=== PATIENT | male | born 1960 | race Caucasian/White ===

== ENCOUNTER 2023-05-11 16:52 | Emergency (ER) | payer OTHER ==
[~2023-05-11] VITALS: Ht 175.3 cm; Wt 98.0 kg
[~2023-05-11 16:52] MED LIST: ATEN50TA8 PO; LIB25 PO; LORA-476 PO; MELO-174 PO
[2023-05-11 17:10] VITALS: BP 167/83; PULSE 99; RESP 18; TEMP 97.8; O2SAT 95
[2023-05-11] MEDS ORDERED: IBUP-2213 PO (18:28)
[2023-05-11 19:15] VITALS: O2SAT 95
== END 2023-05-11 19:15 | disposition home or self-care (01) ==
LOC: MED 16:52
DX: R51.9 Headache, unspecified (principal); I10 Essential (primary) hypertension; Z79.899 Other long term (current) drug therapy
CPT/HCPCS: 70450; 99284

== ENCOUNTER 2023-07-22 17:53 | Emergency (ER) | payer OTHER ==
[~2023-07-22] VITALS: Ht 182.9 cm; Wt 99.8 kg
[~2023-07-22 17:53] MED LIST changes: +IBUP-2213 PO
[2023-07-22 18:01] VITALS: BP 174/87; PULSE 88; RESP 18; TEMP 98; O2SAT 98
[2023-07-22 18:20] LABS: BASOPHILS # (AUTO) 0.1 K/uL (0.00-0.22); BASOPHILS % (AUTO) 2.7 % (0.0-2.0); EOSINOPHILS # (AUTO) 0.1 K/uL (0-0.4); EOSINOPHILS % (AUTO) 3.6 % (0.0-4.0); HEMATOCRIT 37.9 % (36-52); HEMOGLOBIN 12.5 g/dL (12.0-18.0); LYMPHOCYTES # (AUTO) 1.3 K/uL (2.0-11.5); LYMPHOCYTES % (AUTO) 44.8 % (20.5-51.1); MEAN CORPUSCULAR HEMOGLOBIN 29 pg (27-31); MEAN CORPUSCULAR HGB CONC 33 g/dL (33-37); MONOCYTES # (AUTO) 0.4 K/uL (0.8-1.0); MONOCYTES % (AUTO) 12.9 % (1.7-9.3); PLATELET COUNT (AUTO) 68 K/uL (140-450); RED BLOOD CELL COUNT(AUTO) 4.31 MIL/uL (4.20-6.10); RED CELL DISTRIBUTION WIDTH 20.8 % (11.6-13.7); WHITE BLOOD COUNT (AUTO) 2.9 K/uL (4.8-10.8)
[2023-07-22 18:30] LABS: CALCIUM 8.9 mg/dL (8.5-10.1); CREATININE 0.9 mg/dL (0.6-1.3)
[2023-07-22 18:34] LABS: INR 0.96 (0.8-1.2); PARTIAL THROMBOPLASTIN TIME 21.8 secs (22-35.6); PROTHROMBIN TIME 10.1 secs (10.8-13.4)
[2023-07-22 21:00] VITALS: BP 138/72; PULSE 88; RESP 28; TEMP 98; O2SAT 96
== END 2023-07-22 21:00 | disposition home or self-care (01) ==
LOC: MED 17:53
DX: S09.90XA Unspecified injury of head, initial encounter (principal); F10.129 Alcohol abuse with intoxication, unspecified; I10 Essential (primary) hypertension; Z79.899 Other long term (current) drug therapy; Y90.9 Presence of alcohol in blood, level not specified; W18.30XA Fall on same level, unspecified, initial encounter; Y93.89 Activity, other specified; Y92.89 Other specified places as the place of occurrence of the external cause; Y99.8 Other external cause status
CPT/HCPCS: 36415; 70450; 72125; 80048; 85025; 85610; 85730; 99284; G0482

== ENCOUNTER 2023-08-26 12:37 | Emergency (ER) | payer OTHER ==
[~2023-08-26] VITALS: Ht 175.3 cm; Wt 99.8 kg
[~2023-08-26 12:37] MED LIST changes: +CHLO-1446 PO; -LIB25 PO
[2023-08-26 12:43] VITALS: BP 135/90; PULSE 85; RESP 15; TEMP 98.2; O2SAT 96
[2023-08-26 13:26] LABS: BASOPHILS # (AUTO) 0.1 K/uL (0.00-0.22); BASOPHILS % (AUTO) 4.1 % (0.0-2.0); EOSINOPHILS # (AUTO) 0.2 K/uL (0-0.4); EOSINOPHILS % (AUTO) 4.8 % (0.0-4.0); HEMATOCRIT 35.4 % (36-52); HEMOGLOBIN 11.7 g/dL (12.0-18.0); LYMPHOCYTES # (AUTO) 1.4 K/uL (2.0-11.5); LYMPHOCYTES % (AUTO) 41.7 % (20.5-51.1); MEAN CORPUSCULAR HEMOGLOBIN 29 pg (27-31); MEAN CORPUSCULAR HGB CONC 33 g/dL (33-37); MEAN CORPUSCULAR VOLUME 88.6 fL (80-94); MONOCYTES # (AUTO) 0.5 K/uL (0.8-1.0); MONOCYTES % (AUTO) 15.2 % (1.7-9.3); NEUTROPHILS # (AUTO) 1.1 K/uL (1.8-7.7); NEUTROPHILS % (AUTO) 34.2 % (42.2-75.2); PLATELET COUNT (AUTO) 194 K/uL (140-450); RED CELL DISTRIBUTION WIDTH 20.8 % (11.6-13.7); WHITE BLOOD COUNT (AUTO) 3.3 K/uL (4.8-10.8)
[2023-08-26 13:40] LABS: ANION GAP 11.9 (8-16); CREATININE 0.8 mg/dL (0.6-1.3); POTASSIUM 3.9 mmol/L (3.5-5.1)
[2023-08-26 13:46] LABS: INR 0.91 (0.8-1.2); PARTIAL THROMBOPLASTIN TIME 22.4 secs (22-35.6); PROTHROMBIN TIME 9.6 secs (10.8-13.4)
[2023-08-26 13:49] LABS: ALANINE AMINOTRANSFERASE 80 U/L (12-78); ALBUMIN 3.3 g/dL (3.4-5.0); ALKALINE PHOSPHATASE 54 U/L (50-136); ASPARTATE AMINOTRANSFERASE 79 U/L (15-37); BILIRUBIN,DIRECT 0.1 mg/dL (0.0-0.3); TOTAL BILIRUBIN 0.2 mg/dL (0.0-1.0); TOTAL PROTEIN, SERUM 8.1 g/dL (6.4-8.2)
[2023-08-26] MEDS ORDERED: diazePAM 5 MG TAB PO ONE (14:40)
[2023-08-26] MEDS ORDERED: CHLO-836 PO (14:52)
[2023-08-26 15:11] VITALS: BP 135/90; PULSE 79; RESP 15; TEMP 98.2; O2SAT 96
== END 2023-08-26 15:11 | disposition home or self-care (01) ==
LOC: MED 12:37
DX: F10.90 Alcohol use, unspecified, uncomplicated (principal); I11.9 Hypertensive heart disease without heart failure; J44.9 Chronic obstructive pulmonary disease, unspecified; K21.9 Gastro-esophageal reflux disease without esophagitis; Z79.899 Other long term (current) drug therapy; Y90.9 Presence of alcohol in blood, level not specified
CPT/HCPCS: 36415; 71045; 80048; 80076; 83880; 84484; 85025; 85610; 85730; 93005; 99285; Q0092

== ENCOUNTER 2023-08-31 13:12 | Emergency (ER) | payer OTHER ==
[~2023-08-31] VITALS: Ht 182.9 cm; Wt 117.9 kg
[~2023-08-31 13:12] MED LIST changes: +CHLO-836 PO
[2023-08-31 13:18] VITALS: BP 128/74; PULSE 86; RESP 16; TEMP 98.9; O2SAT 97
[2023-08-31 15:05] LABS: BASOPHILS # (AUTO) 0.1 K/uL (0.00-0.22); BASOPHILS % (AUTO) 3.1 % (0.0-2.0); EOSINOPHILS # (AUTO) 0.2 K/uL (0-0.4); EOSINOPHILS % (AUTO) 8.4 % (0.0-4.0); HEMATOCRIT 35.3 % (36-52); HEMOGLOBIN 11.6 g/dL (12.0-18.0); LYMPHOCYTES % (AUTO) 35.1 % (20.5-51.1); MEAN CORPUSCULAR HEMOGLOBIN 29 pg (27-31); MEAN CORPUSCULAR HGB CONC 33 g/dL (33-37); MEAN CORPUSCULAR VOLUME 87.8 fL (80-94); MONOCYTES # (AUTO) 0.4 K/uL (0.8-1.0); MONOCYTES % (AUTO) 13.1 % (1.7-9.3); NEUTROPHILS # (AUTO) 1.1 K/uL (1.8-7.7); NEUTROPHILS % (AUTO) 40.3 % (42.2-75.2); PLATELET COUNT (AUTO) 184 K/uL (140-450); RED BLOOD CELL COUNT(AUTO) 4.03 MIL/uL (4.20-6.10); RED CELL DISTRIBUTION WIDTH 20.3 % (11.6-13.7); WHITE BLOOD COUNT (AUTO) 2.8 K/uL (4.8-10.8)
[2023-08-31 15:13] LABS: ANION GAP 10.4 (8-16); CALCIUM 8.8 mg/dL (8.5-10.1); CARBON DIOXIDE 31.6 mmol/L (21-32); CREATININE 0.7 mg/dL (0.6-1.3)
[2023-08-31 15:21] LABS: ALANINE AMINOTRANSFERASE 27 U/L (12-78); ALBUMIN 3.2 g/dL (3.4-5.0); ALKALINE PHOSPHATASE 48 U/L (50-136); ASPARTATE AMINOTRANSFERASE 31 U/L (15-37); BILIRUBIN,DIRECT 0.1 mg/dL (0.0-0.3); TOTAL BILIRUBIN 0.2 mg/dL (0.0-1.0); TOTAL PROTEIN, SERUM 7.6 g/dL (6.4-8.2)
[2023-08-31 15:28] LABS: ANISOCYTOSIS 1+; HELMET CELLS 1+; OVALOCYTES 1+; POIKILOCYTOSIS 2+; STOMATOCYTES 2+
[2023-08-31 15:34] LABS: INR 0.94 (0.8-1.2); PARTIAL THROMBOPLASTIN TIME 23.3 secs (22-35.6); PROTHROMBIN TIME 9.9 secs (10.8-13.4)
[2023-08-31] MEDS ORDERED: THIAMINE 200 MG/2 ML VIAL IV ONE (15:45)
[2023-08-31] MEDS: FOLIC ACID 1 MG TAB PO ONE (16:02)
[2023-08-31] MEDS: THIAMINE 200 MG/2 ML VIAL IM ONE (16:03)
[2023-08-31 17:34] VITALS: BP 119/74; PULSE 81; RESP 18; TEMP 98.7; O2SAT 100
== END 2023-08-31 17:34 | disposition home or self-care (01) ==
LOC: MED 13:12
DX: F10.129 Alcohol abuse with intoxication, unspecified (principal); J44.9 Chronic obstructive pulmonary disease, unspecified; K21.9 Gastro-esophageal reflux disease without esophagitis; I10 Essential (primary) hypertension; Z79.899 Other long term (current) drug therapy; Y90.9 Presence of alcohol in blood, level not specified
CPT/HCPCS: 36415; 71045; 80048; 80076; 84484; 85025; 85610; 85730; 93005; 96372; 99285; J3411

== ENCOUNTER 2023-09-09 19:36 | Inpatient (IN) | payer OTHER ==
[~2023-09-09] VITALS: Ht 177.8 cm; Wt 112.5 kg
[2023-09-09 19:41] VITALS: BP 156/86; PULSE 130; RESP 20; TEMP 97.4; O2SAT 94
[2023-09-09] MEDS: MULTIVITAMIN-12 10 ML in NACL 0.9% 1,000 ML IV ONE (19:45)
[2023-09-09] MEDS: LORazepam 2 MG/ML VIAL IVP ONE ×2 (19:45→20:40)
[2023-09-09] MEDS: ONDANSETRON 4 MG/2 ML VIAL IVP ONE (19:45)
[2023-09-09 20:06] LABS: BASOPHILS % (AUTO) 0.7 % (0.0-2.0); HEMATOCRIT 34.9 % (36-52); HEMOGLOBIN 11.5 g/dL (12.0-18.0); LYMPHOCYTES # (AUTO) 0.2 K/uL (2.0-11.5); LYMPHOCYTES % (AUTO) 3.8 % (20.5-51.1); MEAN CORPUSCULAR HEMOGLOBIN 29 pg (27-31); MEAN CORPUSCULAR HGB CONC 33 g/dL (33-37); MEAN CORPUSCULAR VOLUME 87.4 fL (80-94); MONOCYTES # (AUTO) 0.6 K/uL (0.8-1.0); MONOCYTES % (AUTO) 12.2 % (1.7-9.3); NEUTROPHILS # (AUTO) 4.1 K/uL (1.8-7.7); NEUTROPHILS % (AUTO) 83.3 % (42.2-75.2); PLATELET COUNT (AUTO) 91 K/uL (140-450); RED CELL DISTRIBUTION WIDTH 21.1 % (11.6-13.7)
[2023-09-09] MEDS: ACETAMINOPHEN EXTRA STRENGTH 500 MG TAB PO ONE (20:15)
[2023-09-09 20:30] LABS: ALBUMIN 3.4 g/dL (3.4-5.0); ANION GAP 25.7 (8-16); CARBON DIOXIDE 19.9 mmol/L (21-32); CREATININE 1.3 mg/dL (0.6-1.3); MAGNESIUM 1.4 mg/dL (1.8-2.4); PHOSPHORUS 2.6 mg/dL (2.5-4.9); POTASSIUM 3.6 mmol/L (3.5-5.1); TOTAL BILIRUBIN 0.5 mg/dL (0.0-1.0); TOTAL PROTEIN, SERUM 8.5 g/dL (6.4-8.2)
[2023-09-09] MEDS: NACL 0.9% 1,000 ML IV ONE ×2 (20:36→21:18)
[2023-09-09] MEDS ORDERED: MULTIVITAMIN-12 10 ML VIAL IV ONE (20:50)
[2023-09-09 21:00] LABS: LACTIC ACID 9.9 mmol/L (0.4-2.0)
[2023-09-09] MEDS ORDERED: DEXMEDETOMIDINE HCL 400 MCG in NACL 0.9% 96 ML IV PRN (21:05)
[2023-09-09] MEDS ORDERED: cefTRIAXone 1,000 MG VIAL ONE (21:07)
[2023-09-09 21:11] LABS: CALCIUM 8.6 mg/dL (8.5-10.1)
[2023-09-09] MEDS: MAG SULF 2000 MG/WATER PREMIX 50 ML IV ONE (21:15)
[2023-09-09] MEDS ORDERED: THIAMINE 200 MG/2 ML VIAL ONE (21:21)
[2023-09-09] MEDS ORDERED: FOLIC ACID 5 MG/ML SYR ONE (21:22)
[2023-09-09] MEDS: THIAMINE 200 MG/2 ML VIAL IM ONE (21:23)
[2023-09-09] MEDS: FOLIC ACID 5 MG/ML SYR IM ONE (21:23)
[2023-09-09 21:32] LABS: INR 0.98 (0.8-1.2); PARTIAL THROMBOPLASTIN TIME 24.6 secs (22-35.6); PROTHROMBIN TIME 10.3 secs (10.8-13.4)
[2023-09-09 22:58] LABS: ANION GAP 15.5 (8-16); CARBON DIOXIDE 26.2 mmol/L (21-32); CREATININE 1.1 mg/dL (0.6-1.3); POTASSIUM 3.7 mmol/L (3.5-5.1)
[2023-09-10 01:10] LABS: APPEARANCE,URINE CLEAR (CLEAR); BILIRUBIN,URINE NEGATIVE (NEGATIVE); BLOOD, URINE 2+ (NEGATIVE); COLOR,URINE YELLOW (YELLOW); LEUKOCYTE ESTERASE ,URINE NEGATIVE (NEGATIVE); NITRITE, URINE NEGATIVE (NEGATIVE); PROTEIN,URINE 2+ (NEGATIVE); UGLUCOSE NEGATIVE (NEGATIVE); UROBILINOGEN,URINE 0.2 EU/dL (0.2 - 1)
[2023-09-10 01:23] LABS: BACTERIA,URINE OCCASSIONAL /HPF (None Seen); HYALINE CASTS, URINE 0-2 /LPF (None Seen); MUCUS,URINE 1+ /LPF (None Seen); RBC,URINE 0-5 /HPF (0-5); SQUAMOUS EPITHELIAL CELL,UR 0-3 (FEW) /LPF (0-3 (FEW)); WBC,URINE 0-5 /HPF (0-5)
[2023-09-10] MEDS: LORazepam 2 MG/ML VIAL IVP PRN ×2 (03:05→18:20)
[2023-09-10 03:59] LABS: FLU A ANTIGEN negative (NEGATIVE); FLU B ANTIGEN negative (NEGATIVE)
[2023-09-10] MEDS: chlordiazePOXIDE 25 MG CAP PO SCH ×2 (08:29→12:13)
[2023-09-10 08:52] VITALS: PULSE 94; RESP 20; O2SAT 95
[2023-09-10 09:39] LABS: BASOPHILS % (AUTO) 0.6 % (0.0-2.0); HEMATOCRIT 31.4 % (36-52); HEMOGLOBIN 10.4 g/dL (12.0-18.0); LYMPHOCYTES # (AUTO) 0.6 K/uL (2.0-11.5); LYMPHOCYTES % (AUTO) 12.8 % (20.5-51.1); MEAN CORPUSCULAR HEMOGLOBIN 29 pg (27-31); MEAN CORPUSCULAR HGB CONC 33 g/dL (33-37); MEAN CORPUSCULAR VOLUME 87.1 fL (80-94); MONOCYTES # (AUTO) 0.9 K/uL (0.8-1.0); MONOCYTES % (AUTO) 19.8 % (1.7-9.3); NEUTROPHILS # (AUTO) 3.1 K/uL (1.8-7.7); NEUTROPHILS % (AUTO) 66.8 % (42.2-75.2); PLATELET COUNT (AUTO) 79 K/uL (140-450); RED BLOOD CELL COUNT(AUTO) 3.61 MIL/uL (4.20-6.10); RED CELL DISTRIBUTION WIDTH 21.1 % (11.6-13.7); WHITE BLOOD COUNT (AUTO) 4.7 K/uL (4.8-10.8)
[2023-09-10 09:55] LABS: ANION GAP 11.8 (8-16); CALCIUM 7.5 mg/dL (8.5-10.1); CARBON DIOXIDE 30.1 mmol/L (21-32); CREATININE 0.7 mg/dL (0.6-1.3); POTASSIUM 3.9 mmol/L (3.5-5.1)
[2023-09-10 10:00] VITALS: BP 146/77; PULSE 94; RESP 17; TEMP 97.5; O2SAT 98
[2023-09-10] MEDS ORDERED: ONDANSETRON 4 MG/2 ML VIAL IVP PRN (11:55)
[2023-09-10 12:00] VITALS: BP 154/80; PULSE 92; RESP 17; TEMP 98; O2SAT 97
[2023-09-10] MEDS ORDERED: remdesivir COMMUNICATION ORDER 1 EA MISC MC PRN (14:45)
[2023-09-10] MEDS ORDERED: remdesivir CLINICAL MONITORING 1 EA MISC MC PRN (14:55)
[2023-09-10 15:01] LABS: ALBUMIN 2.7 g/dL (3.4-5.0); BILIRUBIN,DIRECT 0.1 mg/dL (0.0-0.3); TOTAL BILIRUBIN 0.3 mg/dL (0.0-1.0); TOTAL PROTEIN, SERUM 7.1 g/dL (6.4-8.2)
[2023-09-10] MEDS: THIAMINE 200 MG/2 ML VIAL IV SCH (15:07)
[2023-09-10 16:00] VITALS: BP 154/80; PULSE 97; RESP 24; TEMP 98.8; O2SAT 95
[2023-09-10] MEDS: REMDESIVIR. 200 MG in NACL 0.9% 100 ML IV SCH (16:00)
[2023-09-10 20:00] VITALS: BP 133/82; PULSE 84; PULSE 90; RESP 20; TEMP 98.3; TEMP 98.6; O2SAT 96; O2SAT 98
[2023-09-10] MEDS: FAMOTIDINE 20 MG TAB PO SCH (21:32)
[2023-09-10] MEDS: atenoloL 50 MG TAB PO SCH (21:33)
[2023-09-11 06:51] LABS: ALBUMIN 2.9 g/dL (3.4-5.0); BILIRUBIN,DIRECT 0.2 mg/dL (0.0-0.3); TOTAL BILIRUBIN 0.5 mg/dL (0.0-1.0); TOTAL PROTEIN, SERUM 7.4 g/dL (6.4-8.2)
[2023-09-11 08:00] VITALS: BP 158/83; PULSE 92; RESP 20; TEMP 98.5; O2SAT 100
[2023-09-11] MEDS ORDERED: ENOXAPARIN 40 MG/0.4 ML SYR SUBQ SCH (09:00)
[2023-09-11 09:35] LABS: BASOPHILS % (AUTO) 0.8 % (0.0-2.0); EOSINOPHILS % (AUTO) 0.8 % (0.0-4.0); HEMATOCRIT 32.5 % (36-52); HEMOGLOBIN 10.6 g/dL (12.0-18.0); LYMPHOCYTES # (AUTO) 0.6 K/uL (2.0-11.5); LYMPHOCYTES % (AUTO) 14.8 % (20.5-51.1); MEAN CORPUSCULAR HEMOGLOBIN 29 pg (27-31); MEAN CORPUSCULAR HGB CONC 33 g/dL (33-37); MEAN CORPUSCULAR VOLUME 87.9 fL (80-94); MONOCYTES # (AUTO) 0.5 K/uL (0.8-1.0); MONOCYTES % (AUTO) 13.8 % (1.7-9.3); NEUTROPHILS # (AUTO) 2.7 K/uL (1.8-7.7); NEUTROPHILS % (AUTO) 69.8 % (42.2-75.2); PLATELET COUNT (AUTO) 86 K/uL (140-450); WHITE BLOOD COUNT (AUTO) 3.8 K/uL (4.8-10.8)
[2023-09-11 09:38] LABS: ANION GAP 9.2 (8-16); CALCIUM 7.7 mg/dL (8.5-10.1); CARBON DIOXIDE 32.5 mmol/L (21-32); CREATININE 0.7 mg/dL (0.6-1.3); POTASSIUM 3.7 mmol/L (3.5-5.1)
[2023-09-11] MEDS: MEDS-TO-BEDS MC SCH (09:57)
[2023-09-11] MEDS: REMDESIVIR. 100 MG in NACL 0.9% 100 ML IV SCH (11:15)
[2023-09-11 12:00] VITALS: BP 148/87; PULSE 97; RESP 20; TEMP 98.9; O2SAT 98
[2023-09-11 16:00] VITALS: BP 143/82; PULSE 95; RESP 20; TEMP 98.6; O2SAT 97
[2023-09-11] MEDS ORDERED: REMDESIVIR. 100 MG in NACL 0.9% 100 ML IV SCH (16:00)
[2023-09-11 20:00] VITALS: BP 133/85; PULSE 103; RESP 20; TEMP 100.1; O2SAT 95; O2SAT 96
[2023-09-11] MEDS ORDERED: ACETAMINOPHEN 325 MG TAB PO PRN (21:45)
[2023-09-11] MEDS: ACETAMINOPHEN 325 MG TAB ONE ×2 (21:52→21:55)
[2023-09-12] VITALS: BP 122/62; PULSE 101; RESP 20; TEMP 98.8; O2SAT 97
[2023-09-12 04:00] VITALS: BP 135/90; PULSE 100; RESP 20; TEMP 98.7; O2SAT 96
[2023-09-12 06:01] VITALS: O2SAT 97
[2023-09-12 08:00] VITALS: BP 123/66; PULSE 106; RESP 20; RESP 26; TEMP 98.5; TEMP 98.8; O2SAT 96
[2023-09-12 08:11] LABS: ALBUMIN 2.9 g/dL (3.4-5.0); BILIRUBIN,DIRECT 0.3 mg/dL (0.0-0.3); TOTAL BILIRUBIN 0.5 mg/dL (0.0-1.0); TOTAL PROTEIN, SERUM 6.9 g/dL (6.4-8.2)
[2023-09-12 08:51] VITALS: O2SAT 95
[2023-09-12] MEDS: chlordiazePOXIDE 25 MG CAP PO SCH (12:32)
[2023-09-12] MEDS: LORazepam 2 MG/ML VIAL IVP PRN (16:18)
[2023-09-12 20:00] VITALS: BP 129/72; PULSE 98; RESP 18; RESP 20; TEMP 97.9; O2SAT 97
[2023-09-13] VITALS (8 sets, daily range): BP systolic 123–134; BP diastolic 68–77; PULSE 84–90; RESP 18–20; TEMP 97–209.1; O2SAT 96–97
[2023-09-13 07:26] LABS: ALBUMIN 2.7 g/dL (3.4-5.0); BILIRUBIN,DIRECT 0.2 mg/dL (0.0-0.3); TOTAL BILIRUBIN 0.4 mg/dL (0.0-1.0); TOTAL PROTEIN, SERUM 7.4 g/dL (6.4-8.2)
[2023-09-13 07:39] LABS: ANION GAP 12.2 (8-16); CALCIUM 8.1 mg/dL (8.5-10.1); CARBON DIOXIDE 30.4 mmol/L (21-32); CREATININE 0.7 mg/dL (0.6-1.3); POTASSIUM 3.6 mmol/L (3.5-5.1)
[2023-09-13] MEDS: DEXAMETHASONE 4 MG TAB PO SCH (13:02)
[2023-09-13] MEDS: chlordiazePOXIDE 25 MG CAP PO SCH (13:10)
[2023-09-14] VITALS (7 sets, daily range): BP systolic 120–138; BP diastolic 56–71; PULSE 76–98; RESP 20–22; TEMP 97.4–98.8; O2SAT 85–98
[2023-09-14 07:29] LABS: ALBUMIN 2.7 g/dL (3.4-5.0); BILIRUBIN,DIRECT 0.3 mg/dL (0.0-0.3); TOTAL BILIRUBIN 0.5 mg/dL (0.0-1.0); TOTAL PROTEIN, SERUM 7.6 g/dL (6.4-8.2)
[2023-09-14] MEDS: LORazepam 1 MG TAB PO PRN (22:25)
[2023-09-15] VITALS (8 sets, daily range): BP systolic 156–163; BP diastolic 78–83; PULSE 71–83; RESP 19–20; TEMP 97.6–98.8; O2SAT 90–98
[2023-09-15 08:03] LABS: ANION GAP 6.7 (8-16); CALCIUM 8.2 mg/dL (8.5-10.1); CARBON DIOXIDE 34.9 mmol/L (21-32); CREATININE 0.7 mg/dL (0.6-1.3); POTASSIUM 3.6 mmol/L (3.5-5.1)
[2023-09-15 08:18] LABS: ALBUMIN 2.6 g/dL (3.4-5.0); BILIRUBIN,DIRECT 0.3 mg/dL (0.0-0.3); TOTAL BILIRUBIN 0.4 mg/dL (0.0-1.0); TOTAL PROTEIN, SERUM 7.1 g/dL (6.4-8.2)
[2023-09-15] MEDS ORDERED: CHLO-836 PO (15:10)
[2023-09-15] MEDS: chlordiazePOXIDE 25 MG CAP PO SCH (22:07)
[2023-09-16 08:00] VITALS: BP 152/64; PULSE 72; RESP 18; TEMP 98; O2SAT 97
[2023-09-16 09:10] VITALS: O2SAT 94
== END 2023-09-16 14:40 | DRG 720 ==
LOC: MED 19:36 → MTU 21:02 → MIC 09-10 05:24 → MTU 09-10 16:00
PROVIDERS: ADMIT Hospitalist; ATTEND Hospitalist
PROC: XW033E5 Introduction of Remdesivir Anti-infective into Peripheral Vein, Percutaneous Approach, New Technology Group 5 (ICD-10-PCS; principal; 2023-09-09)
DX: A41.9 Sepsis, unspecified organism (principal); J12.82 Pneumonia due to coronavirus disease 2019; F10.231 Alcohol dependence with withdrawal delirium; U07.1 COVID-19; D69.6 Thrombocytopenia, unspecified; E87.21 Acute metabolic acidosis; I11.0 Hypertensive heart disease with heart failure; I50.9 Heart failure, unspecified; G40.909 Epilepsy, unspecified, not intractable, without status epilepticus; K21.9 Gastro-esophageal reflux disease without esophagitis; K74.60 Unspecified cirrhosis of liver; J44.9 Chronic obstructive pulmonary disease, unspecified; E66.9 Obesity, unspecified; Z68.35 Body mass index [BMI] 35.0-35.9, adult; Z91.148 Patient's other noncompliance with medication regimen for other reason; Z79.899 Other long term (current) drug therapy
CPT/HCPCS: 36415; 71045; 80048; 80053; 80076; 81001; 82140; 82948; 83605; 83690; 83735; 84100; 85025; 85610; 85730; 87040; 87081; 96365; 96368; 96372; 96375; 97110; 97112; 97163-GP; 97530; 99291; A9153; G0482; J0696; J2060; J3411; J3475; J3490; Q0092

== ENCOUNTER 2023-11-19 16:14 | Emergency (ER) | payer OTHER ==
[~2023-11-19] VITALS: Ht 180.3 cm; Wt 122.5 kg
[~2023-11-19 16:14] MED LIST changes: -CHLO-1446 PO; -IBUP-2213 PO; -LORA-476 PO
[2023-11-19 16:24] VITALS: BP 122/68; PULSE 91; RESP 18; TEMP 98.6; O2SAT 94
[2023-11-19 17:00] VITALS: BP 122/68; PULSE 91; RESP 18; TEMP 98.6; O2SAT 94
== END 2023-11-19 17:00 | disposition home or self-care (01) ==
LOC: MED 16:14
DX: F10.129 Alcohol abuse with intoxication, unspecified (principal); J45.909 Unspecified asthma, uncomplicated; I10 Essential (primary) hypertension; Z79.899 Other long term (current) drug therapy; Y90.9 Presence of alcohol in blood, level not specified
CPT/HCPCS: 99283

== ENCOUNTER 2023-12-02 11:42 | Inpatient (IN) | payer OTHER ==
[~2023-12-02] VITALS: Ht 180.3 cm; Wt 99.8 kg
[~2023-12-02 11:42] MED LIST changes: +CHLO-757 PO; -CHLO-836 PO
[2023-12-02 11:47] VITALS: BP 134/68; PULSE 78; RESP 20; TEMP 98.3; O2SAT 95
[2023-12-02 12:13] LABS: EOSINOPHILS % (AUTO) 0.3 % (0.0-4.0); HEMATOCRIT 33.5 % (36-52); HEMOGLOBIN 10.9 g/dL (12.0-18.0); LYMPHOCYTES # (AUTO) 0.5 K/uL (2.0-11.5); LYMPHOCYTES % (AUTO) 13.9 % (20.5-51.1); MEAN CORPUSCULAR HEMOGLOBIN 26 pg (27-31); MEAN CORPUSCULAR HGB CONC 33 g/dL (33-37); MEAN CORPUSCULAR VOLUME 80.6 fL (80-94); MONOCYTES # (AUTO) 0.5 K/uL (0.8-1.0); MONOCYTES % (AUTO) 13.9 % (1.7-9.3); NEUTROPHILS # (AUTO) 2.8 K/uL (1.8-7.7); NEUTROPHILS % (AUTO) 70.9 % (42.2-75.2); PLATELET COUNT (AUTO) 53 K/uL (140-450); RED BLOOD CELL COUNT(AUTO) 4.16 MIL/uL (4.20-6.10)
[2023-12-02] MEDS: NACL 0.9% 1,000 ML IV ONE (12:25)
[2023-12-02] MEDS: LORazepam 2 MG/ML VIAL IVP ONE (12:27)
[2023-12-02 12:33] LABS: ALANINE AMINOTRANSFERASE 16 U/L (12-78); ALBUMIN 3.7 g/dL (3.4-5.0); ALKALINE PHOSPHATASE 53 U/L (50-136); ANION GAP 16.9 (8-16); ASPARTATE AMINOTRANSFERASE 29 U/L (15-37); CALCIUM 8.6 mg/dL (8.5-10.1); CARBON DIOXIDE 25.9 mmol/L (21-32); CHLORIDE 96 mmol/L (98-107); CREATININE 0.8 mg/dL (0.6-1.3); GFR ARICAN-AMERICAN 125 mL/min (>90); GFR NON ARICAN-AMERICAN 103 mL/min (>90); GLUCOSE 93 mg/dL (74-106); POTASSIUM 3.8 mmol/L (3.5-5.1); SODIUM SERUM 135 mmol/L (136-145); TOTAL BILIRUBIN 1.5 mg/dL (0.0-1.0); TOTAL PROTEIN, SERUM 7.2 g/dL (6.4-8.2); UREA NITROGEN, BLOOD 17 mg/dL (7-18)
[2023-12-02 12:34] LABS: ACETAMINOPHEN < 0.5 ug/ml (10-30); ALCOHOL, BLOOD < 3 mg/dL (<10); SALICYLATE < 2.8 mg/dL (2.8-20.0)
[2023-12-02] MEDS ORDERED: MAG SULF 2000 MG/WATER PREMIX 50 ML IV PRN (14:30)
[2023-12-02] MEDS ORDERED: MORPHINE SULFATE 4 MG/ML SYR IVP PRN (14:30)
[2023-12-02] MEDS ORDERED: MAGNESIUM OXIDE 400 MG TAB PO PRN (14:30)
[2023-12-02] MEDS ORDERED: HYDROcodone/APAP 5/325 MG 1 TAB TAB PO PRN (14:30)
[2023-12-02] MEDS ORDERED: KCL 20 MEQ IN 100 mL PREMIX 200 ML IV PRN (14:30)
[2023-12-02] MEDS ORDERED: ACETAMINOPHEN 325 MG TAB PO PRN (14:30)
[2023-12-02] MEDS ORDERED: ONDANSETRON 4 MG/2 ML VIAL IVP PRN (14:30)
[2023-12-02] MEDS ORDERED: CELE100C PO (14:46)
[2023-12-02] MEDS ORDERED: ALPR0.5T2 PO (14:46)
[2023-12-02] MEDS: chlordiazePOXIDE 25 MG CAP PO SCH (14:49)
[2023-12-02] MEDS: NACL 0.9% 1,000 ML IV SCH (14:50)
[2023-12-02 16:00] VITALS: BP 138/77; PULSE 80; RESP 15; TEMP 98.1; O2SAT 99
[2023-12-02 16:43] VITALS: RESP 15; O2SAT 99
[2023-12-02] MEDS: GABAPENTIN 300 MG CAP PO SCH (18:43)
[2023-12-02 20:00] VITALS: BP 144/72; PULSE 86; PULSE 93; RESP 20; TEMP 97.9; O2SAT 98
[2023-12-03] VITALS: BP 107/65; PULSE 85; PULSE 89; RESP 17; TEMP 97.6; O2SAT 95
[2023-12-03] MEDS: CLONIDINE HYDROCHLORIDE 0.1 MG TAB PO SCH (02:24)
[2023-12-03 04:00] VITALS: BP_SYST 102; BP_SYST 107; BP_DIAS 53; BP_DIAS 65; PULSE 68; PULSE 79; PULSE 85; RESP 17; RESP 19; TEMP 97.6; TEMP 98.1; O2SAT 100; O2SAT 95
[2023-12-03 05:15] LABS: BASOPHILS % (AUTO) 0.8 % (0.0-2.0); EOSINOPHILS # (AUTO) 0.1 K/uL (0-0.4); EOSINOPHILS % (AUTO) 2.6 % (0.0-4.0); HEMATOCRIT 32.1 % (36-52); HEMOGLOBIN 10.1 g/dL (12.0-18.0); LYMPHOCYTES # (AUTO) 0.9 K/uL (2.0-11.5); LYMPHOCYTES % (AUTO) 25.6 % (20.5-51.1); MEAN CORPUSCULAR HEMOGLOBIN 26 pg (27-31); MEAN CORPUSCULAR HGB CONC 32 g/dL (33-37); MEAN CORPUSCULAR VOLUME 82.6 fL (80-94); MONOCYTES # (AUTO) 0.5 K/uL (0.8-1.0); MONOCYTES % (AUTO) 13.9 % (1.7-9.3); NEUTROPHILS % (AUTO) 57.1 % (42.2-75.2); PLATELET COUNT (AUTO) 53 K/uL (140-450); RED BLOOD CELL COUNT(AUTO) 3.88 MIL/uL (4.20-6.10); RED CELL DISTRIBUTION WIDTH 19.6 % (11.6-13.7); WHITE BLOOD COUNT (AUTO) 3.5 K/uL (4.8-10.8)
[2023-12-03 06:11] LABS: ANION GAP 16.9 (8-16); CALCIUM 8.3 mg/dL (8.5-10.1); CARBON DIOXIDE 23.6 mmol/L (21-32); CREATININE 0.8 mg/dL (0.6-1.3); POTASSIUM 3.5 mmol/L (3.5-5.1)
[2023-12-03 08:00] VITALS: BP 155/80; PULSE 105; PULSE 80; RESP 18; RESP 20; O2SAT 95
[2023-12-03] MEDS: THIAMINE 100 MG TAB PO SCH (08:59)
[2023-12-03] MEDS: ENOXAPARIN 40 MG/0.4 ML SYR SUBQ SCH (09:00)
[2023-12-03] MEDS: MULTIVITAMIN 1 TAB PO SCH (09:00)
[2023-12-03 12:00] VITALS: BP 162/81; PULSE 88; PULSE 97; RESP 20; TEMP 97.8; O2SAT 95
[2023-12-03] MEDS: LORazepam 2 MG/ML VIAL IVP PRN ×2 (15:16→20:28)
[2023-12-03 16:00] VITALS: BP 159/84; PULSE 94; PULSE 98; RESP 20; TEMP 97.9; O2SAT 95
[2023-12-03] MEDS: LORazepam 1 MG TAB PO PRN (16:13)
[2023-12-03] MEDS: CLONIDINE HYDROCHLORIDE 0.1 MG TAB PO ONE (18:29)
[2023-12-03 20:00] VITALS: BP 143/90; PULSE 98; RESP 18; TEMP 98.2; O2SAT 96
[2023-12-03] MEDS: MEDS-TO-BEDS MC SCH (21:00)
[2023-12-03] MEDS: ZOLPIDEM 5 MG TAB PO PRN (22:58)
[2023-12-04] VITALS (9 sets, daily range): BP systolic 144–163; BP diastolic 69–94; PULSE 85–102; RESP 18–20; TEMP 97–98.6; O2SAT 95–97
[2023-12-04 06:59] LABS: BASOPHILS % (AUTO) 0.8 % (0.0-2.0); EOSINOPHILS # (AUTO) 0.2 K/uL (0-0.4); EOSINOPHILS % (AUTO) 4.2 % (0.0-4.0); HEMATOCRIT 33.9 % (36-52); HEMOGLOBIN 10.7 g/dL (12.0-18.0); LYMPHOCYTES # (AUTO) 0.9 K/uL (2.0-11.5); LYMPHOCYTES % (AUTO) 23.9 % (20.5-51.1); MEAN CORPUSCULAR HEMOGLOBIN 26 pg (27-31); MEAN CORPUSCULAR HGB CONC 32 g/dL (33-37); MEAN CORPUSCULAR VOLUME 82.3 fL (80-94); MONOCYTES # (AUTO) 0.5 K/uL (0.8-1.0); MONOCYTES % (AUTO) 12.8 % (1.7-9.3); NEUTROPHILS # (AUTO) 2.3 K/uL (1.8-7.7); NEUTROPHILS % (AUTO) 58.3 % (42.2-75.2); PLATELET COUNT (AUTO) 69 K/uL (140-450); RED BLOOD CELL COUNT(AUTO) 4.12 MIL/uL (4.20-6.10); RED CELL DISTRIBUTION WIDTH 19.9 % (11.6-13.7); WHITE BLOOD COUNT (AUTO) 3.9 K/uL (4.8-10.8)
[2023-12-04 07:22] LABS: ANION GAP 21.1 (8-16); CALCIUM 8.5 mg/dL (8.5-10.1); CARBON DIOXIDE 19.3 mmol/L (21-32); CREATININE 0.8 mg/dL (0.6-1.3); POTASSIUM 3.4 mmol/L (3.5-5.1)
[2023-12-04] MEDS: POTASSIUM CHLORIDE 10 MEQ TABER PO PRN (10:28)
[2023-12-05] VITALS: BP 138/90; PULSE 94; PULSE 95; RESP 18; TEMP 98.6; O2SAT 97
[2023-12-05 04:00] VITALS: BP 118/70; PULSE 91; RESP 18; TEMP 98.4; O2SAT 96
[2023-12-05 06:57] LABS: HEMATOCRIT 32.2 % (36-52); HEMOGLOBIN 10.4 g/dL (12.0-18.0); MEAN CORPUSCULAR HEMOGLOBIN 27 pg (27-31); MEAN CORPUSCULAR HGB CONC 32 g/dL (33-37); MEAN CORPUSCULAR VOLUME 82.1 fL (80-94); PLATELET COUNT (AUTO) 84 K/uL (140-450); RED BLOOD CELL COUNT(AUTO) 3.92 MIL/uL (4.20-6.10); RED CELL DISTRIBUTION WIDTH 20.1 % (11.6-13.7); WHITE BLOOD COUNT (AUTO) 3.3 K/uL (4.8-10.8)
[2023-12-05 07:32] LABS: ANION GAP 16.3 (8-16); CALCIUM 8.3 mg/dL (8.5-10.1); CARBON DIOXIDE 22.4 mmol/L (21-32); POTASSIUM 3.7 mmol/L (3.5-5.1)
[2023-12-05 08:00] VITALS: BP 151/93; PULSE 72; PULSE 86; PULSE 96; RESP 17; RESP 18; TEMP 97.7; O2SAT 96; O2SAT 99
[2023-12-05 08:26] LABS: CREATININE 0.8 mg/dL (0.6-1.3)
[2023-12-05] MEDS ORDERED: [UNRECOGNIZED DRUG - CODE] PO (08:29)
[2023-12-05] MEDS ORDERED: CHLO5CAP29 PO (08:29)
[2023-12-05] MEDS ORDERED: THIA-10 PO (08:29)
[2023-12-05] MEDS ORDERED: ENOXAPARIN 40 MG/0.4 ML SYR SUBQ SCH (09:00)
[2023-12-05 09:51] LABS: EOSINOPHILS % (MANUAL) 6 % (0-4); MONOCYTES % (MANUAL) 14 % (5-12)
[2023-12-05 09:52] LABS: LYMPHOCYTES % (MANUAL) 25 % (20-46)
[2023-12-05 12:00] VITALS: BP 177/92; PULSE 100; PULSE 103; RESP 20; TEMP 97.5; O2SAT 95
[2023-12-05 13:40] VITALS: BP 153/91; PULSE 102; RESP 18; TEMP 97.8; O2SAT 95
== END 2023-12-05 14:30 | disposition home or self-care (01) | DRG 422 ==
LOC: MED 11:42 → MMU 14:27 → MTU 15:29
PROVIDERS: ADMIT Internal Medicine; ATTEND Internal Medicine
DX: E86.0 Dehydration (principal); D69.6 Thrombocytopenia, unspecified; R65.10 Systemic inflammatory response syndrome (SIRS) of non-infectious origin without acute organ dysfunction; D50.0 Iron deficiency anemia secondary to blood loss (chronic); F10.939 Alcohol use, unspecified with withdrawal, unspecified; Z79.899 Other long term (current) drug therapy
CPT/HCPCS: 36415; 80048; 80053; 83735; 85025; 87081; 93005; 96361; 96374; 99285; G0480; G0482; J2060

== ENCOUNTER 2024-02-17 21:39 | Inpatient (IN) | payer MEDICARE, OTHER ==
[~2024-02-17] VITALS: Ht 180.3 cm; Wt 108.9 kg
[~2024-02-17 21:39] MED LIST changes: +ALPR0.5T2 PO; +CELE100C PO; -CHLO-757 PO; +CHLO5CAP29 PO; +THIA-10 PO; +[UNRECOGNIZED DRUG - CODE] PO
[2024-02-17 21:41] VITALS: BP 164/87; PULSE 74; RESP 16; TEMP 99; O2SAT 98
[2024-02-18] VITALS (8 sets, daily range): BP systolic 113–155; BP diastolic 57–86; PULSE 80–90; RESP 18–20; TEMP 97.3–98.7; O2SAT 94–96
[2024-02-18 00:02] LABS: BASOPHILS % (AUTO) 0.7 % (0.0-2.0); HEMOGLOBIN 11.6 g/dL (12.0-18.0); LYMPHOCYTES # (AUTO) 0.4 K/uL (2.0-11.5); LYMPHOCYTES % (AUTO) 8.9 % (20.5-51.1); MEAN CORPUSCULAR HEMOGLOBIN 26 pg (27-31); MEAN CORPUSCULAR HGB CONC 32 g/dL (33-37); MEAN CORPUSCULAR VOLUME 81.5 fL (80-94); MONOCYTES # (AUTO) 0.6 K/uL (0.8-1.0); MONOCYTES % (AUTO) 12.7 % (1.7-9.3); NEUTROPHILS # (AUTO) 3.6 K/uL (1.8-7.7); NEUTROPHILS % (AUTO) 77.7 % (42.2-75.2); PLATELET COUNT (AUTO) 57 K/uL (140-450); RED BLOOD CELL COUNT(AUTO) 4.42 MIL/uL (4.20-6.10); RED CELL DISTRIBUTION WIDTH 24.1 % (11.6-13.7); WHITE BLOOD COUNT (AUTO) 4.6 K/uL (4.8-10.8)
[2024-02-18 00:16] LABS: ANION GAP 14.5 (8-16); CALCIUM 8.5 mg/dL (8.5-10.1); CARBON DIOXIDE 29.2 mmol/L (21-32); CREATININE 0.9 mg/dL (0.6-1.3); POTASSIUM 3.7 mmol/L (3.5-5.1)
[2024-02-18] MEDS: NACL 0.9% 1,000 ML IV ONE (00:18)
[2024-02-18] MEDS: LORazepam 2 MG/ML VIAL IVP ONE (00:18)
[2024-02-18 00:21] LABS: ALBUMIN 3.6 g/dL (3.4-5.0); TOTAL BILIRUBIN 1.9 mg/dL (0.0-1.0); TOTAL PROTEIN, SERUM 7.5 g/dL (6.4-8.2)
[2024-02-18] MEDS ORDERED: KCL 20 MEQ IN 100 mL PREMIX 200 ML IV PRN (00:30)
[2024-02-18] MEDS ORDERED: MAGNESIUM OXIDE 400 MG TAB PO PRN (00:30)
[2024-02-18] MEDS ORDERED: HYDROcodone/APAP 5/325 MG 1 TAB TAB PO PRN (00:30)
[2024-02-18] MEDS ORDERED: ONDANSETRON 4 MG/2 ML VIAL IVP PRN (00:30)
[2024-02-18] MEDS ORDERED: ACETAMINOPHEN 325 MG TAB PO PRN (00:30)
[2024-02-18] MEDS: NACL 0.9% 1,000 ML IV SCH (01:25)
[2024-02-18] MEDS: FOLIC ACID 1 MG TAB PO ONE (01:26)
[2024-02-18] MEDS: LORazepam 1 MG TAB PO PRN (08:32)
[2024-02-18] MEDS: MULTIVITAMIN 1 TAB PO SCH (08:32)
[2024-02-18] MEDS: THIAMINE 100 MG TAB PO SCH (08:32)
[2024-02-19] VITALS (9 sets, daily range): BP systolic 121–163; BP diastolic 75–96; PULSE 75–101; RESP 18–20; TEMP 97.9–98.5; O2SAT 94–98
[2024-02-19 06:53] LABS: BASOPHILS % (AUTO) 0.5 % (0.0-2.0); EOSINOPHILS # (AUTO) 0.1 K/uL (0-0.4); EOSINOPHILS % (AUTO) 2.1 % (0.0-4.0); HEMATOCRIT 34.5 % (36-52); HEMOGLOBIN 10.9 g/dL (12.0-18.0); LYMPHOCYTES # (AUTO) 0.7 K/uL (2.0-11.5); LYMPHOCYTES % (AUTO) 23.1 % (20.5-51.1); MEAN CORPUSCULAR HEMOGLOBIN 26 pg (27-31); MEAN CORPUSCULAR HGB CONC 32 g/dL (33-37); MEAN CORPUSCULAR VOLUME 82.9 fL (80-94); MONOCYTES # (AUTO) 0.5 K/uL (0.8-1.0); NEUTROPHILS # (AUTO) 1.9 K/uL (1.8-7.7); NEUTROPHILS % (AUTO) 60.3 % (42.2-75.2); PLATELET COUNT (AUTO) 57 K/uL (140-450); RED BLOOD CELL COUNT(AUTO) 4.16 MIL/uL (4.20-6.10); RED CELL DISTRIBUTION WIDTH 24.2 % (11.6-13.7); WHITE BLOOD COUNT (AUTO) 3.2 K/uL (4.8-10.8)
[2024-02-19 07:18] LABS: ALBUMIN 3.1 g/dL (3.4-5.0); ANION GAP 15.1 (8-16); CALCIUM 8.1 mg/dL (8.5-10.1); CARBON DIOXIDE 26.3 mmol/L (21-32); CREATININE 0.8 mg/dL (0.6-1.3); MAGNESIUM 1.1 mg/dL (1.8-2.4); PHOSPHORUS 1.9 mg/dL (2.5-4.9); POTASSIUM 3.4 mmol/L (3.5-5.1); TOTAL BILIRUBIN 1.1 mg/dL (0.0-1.0); TOTAL PROTEIN, SERUM 6.4 g/dL (6.4-8.2)
[2024-02-19] MEDS: MEDS-TO-BEDS MC SCH (08:48)
[2024-02-19] MEDS: MAG SULF 2000 MG/WATER PREMIX 50 ML IV PRN (08:55)
[2024-02-19] MEDS ORDERED: NYSTATIN POW 100 MU/GM 15 GM BTL TP PRN (10:05)
[2024-02-19] MEDS: NYSTATIN POW 100 MU/GM 15 GM BTL TP SCH (11:31)
[2024-02-19] MEDS: POTASSIUM CHLORIDE 10 MEQ TABER PO PRN (12:02)
[2024-02-19] MEDS: GABAPENTIN 300 MG CAP PO SCH (12:37)
[2024-02-19] MEDS: CLONIDINE HYDROCHLORIDE 0.1 MG TAB PO SCH (12:38)
[2024-02-20] VITALS: BP 120/80; PULSE 77; PULSE 81; RESP 20; TEMP 98.5; O2SAT 95
[2024-02-20 04:00] VITALS: BP 120/80; PULSE 111; PULSE 77; RESP 20; TEMP 98.5; O2SAT 95
[2024-02-20 06:41] LABS: BASOPHILS % (AUTO) 0.8 % (0.0-2.0); EOSINOPHILS # (AUTO) 0.1 K/uL (0-0.4); EOSINOPHILS % (AUTO) 3.9 % (0.0-4.0); HEMATOCRIT 36.5 % (36-52); HEMOGLOBIN 11.7 g/dL (12.0-18.0); LYMPHOCYTES # (AUTO) 0.7 K/uL (2.0-11.5); LYMPHOCYTES % (AUTO) 20.2 % (20.5-51.1); MEAN CORPUSCULAR HEMOGLOBIN 26 pg (27-31); MEAN CORPUSCULAR HGB CONC 32 g/dL (33-37); MEAN CORPUSCULAR VOLUME 82.6 fL (80-94); MONOCYTES # (AUTO) 0.5 K/uL (0.8-1.0); MONOCYTES % (AUTO) 12.7 % (1.7-9.3); NEUTROPHILS # (AUTO) 2.3 K/uL (1.8-7.7); NEUTROPHILS % (AUTO) 62.4 % (42.2-75.2); PLATELET COUNT (AUTO) 80 K/uL (140-450); RED BLOOD CELL COUNT(AUTO) 4.42 MIL/uL (4.20-6.10); WHITE BLOOD COUNT (AUTO) 3.7 K/uL (4.8-10.8)
[2024-02-20 07:15] LABS: ALBUMIN 3.3 g/dL (3.4-5.0); ANION GAP 18.6 (8-16); CALCIUM 8.7 mg/dL (8.5-10.1); CARBON DIOXIDE 23.8 mmol/L (21-32); CREATININE 0.7 mg/dL (0.6-1.3); MAGNESIUM 1.7 mg/dL (1.8-2.4); PHOSPHORUS 2.3 mg/dL (2.5-4.9); POTASSIUM 3.4 mmol/L (3.5-5.1); TOTAL BILIRUBIN 1.1 mg/dL (0.0-1.0); TOTAL PROTEIN, SERUM 6.9 g/dL (6.4-8.2)
[2024-02-20 08:00] VITALS: BP 161/86; PULSE 102; PULSE 87; RESP 18; TEMP 97.6; O2SAT 96
[2024-02-20] MEDS: hydrALAZINE 25 MG TAB PO PRN (12:14)
[2024-02-20 12:42] VITALS: BP 161/88; PULSE 110; PULSE 115; RESP 18; TEMP 97.7; O2SAT 94
[2024-02-20 16:00] VITALS: BP 152/98; PULSE 91; PULSE 94; RESP 18; TEMP 98.6; O2SAT 95
[2024-02-20 20:00] VITALS: BP 161/88; PULSE 102; PULSE 111; RESP 19; TEMP 98.2; O2SAT 93
[2024-02-20] MEDS ORDERED: CLON0.1T16 PO (21:30)
[2024-02-20] MEDS ORDERED: LORA-476 PO (21:30)
[2024-02-21] VITALS: BP 125/54; PULSE 78; PULSE 83; RESP 18; TEMP 97.8; O2SAT 94
[2024-02-21 04:00] VITALS: BP 169/88; PULSE 79; PULSE 81; RESP 19; TEMP 97.6; O2SAT 98
[2024-02-21 07:03] LABS: BASOPHILS % (AUTO) 0.8 % (0.0-2.0); EOSINOPHILS # (AUTO) 0.2 K/uL (0-0.4); EOSINOPHILS % (AUTO) 5.9 % (0.0-4.0); HEMATOCRIT 35.3 % (36-52); HEMOGLOBIN 11.3 g/dL (12.0-18.0); LYMPHOCYTES # (AUTO) 0.9 K/uL (2.0-11.5); LYMPHOCYTES % (AUTO) 23.3 % (20.5-51.1); MEAN CORPUSCULAR HEMOGLOBIN 27 pg (27-31); MEAN CORPUSCULAR HGB CONC 32 g/dL (33-37); MEAN CORPUSCULAR VOLUME 82.8 fL (80-94); MONOCYTES # (AUTO) 0.6 K/uL (0.8-1.0); MONOCYTES % (AUTO) 15.7 % (1.7-9.3); NEUTROPHILS % (AUTO) 54.3 % (42.2-75.2); PLATELET COUNT (AUTO) 99 K/uL (140-450); RED BLOOD CELL COUNT(AUTO) 4.26 MIL/uL (4.20-6.10); WHITE BLOOD COUNT (AUTO) 3.6 K/uL (4.8-10.8)
[2024-02-21 07:33] LABS: ALBUMIN 2.8 g/dL (3.4-5.0); ANION GAP 15.4 (8-16); CALCIUM 8.2 mg/dL (8.5-10.1); CARBON DIOXIDE 25.6 mmol/L (21-32); CREATININE 0.8 mg/dL (0.6-1.3); MAGNESIUM 1.5 mg/dL (1.8-2.4); PHOSPHORUS 3.4 mg/dL (2.5-4.9); TOTAL BILIRUBIN 0.8 mg/dL (0.0-1.0); TOTAL PROTEIN, SERUM 6.1 g/dL (6.4-8.2)
[2024-02-21 08:00] VITALS: BP 146/80; PULSE 91; RESP 18; TEMP 98.7; O2SAT 91; O2SAT 93
[2024-02-21] MEDS: METOPROLOL 25 MG TAB PO SCH (09:33)
[2024-02-21] MEDS ORDERED: AMLO10TA PO (10:59)
[2024-02-21] MEDS: amLODIPine 5 MG TAB PO SCH (11:00)
[2024-02-21 12:00] VITALS: BP 140/70; PULSE 88; PULSE 91; RESP 18; TEMP 98.7; O2SAT 98
[2024-02-21 16:00] VITALS: BP 162/92; PULSE 91; PULSE 98; RESP 19; TEMP 98; O2SAT 96
[2024-02-21 17:21] VITALS: BP 162/92; PULSE 98; RESP 19; TEMP 98
== END 2024-02-21 20:30 | DRG 897 ==
LOC: MED 21:39 → MTU 02-18 00:30
PROVIDERS: ADMIT Hospitalist; ATTEND Hospitalist
DX: F10.139 Alcohol abuse with withdrawal, unspecified (principal); I10 Essential (primary) hypertension; Z79.899 Other long term (current) drug therapy
CPT/HCPCS: 36415; 80053; 83735; 84100; 85025; 87081; 96361; 96374; 97110; 97116; 97163-GP; 97530; 99285; G0482; J2060; J3475

== ENCOUNTER 2024-05-14 08:15 | Emergency (ER) | payer MEDICARE, MEDICAID ==
[~2024-05-14] VITALS: Ht 180.3 cm; Wt 99.8 kg
[~2024-05-14 08:15] MED LIST changes: -ALPR0.5T2 PO; +AMLO10TA PO; -ATEN50TA8 PO; -CELE100C PO; -CHLO5CAP29 PO; +CLON0.1T16 PO; +LORA-476 PO; -MELO-174 PO
[2024-05-14 08:41] VITALS: BP 150/84; PULSE 78; RESP 18; TEMP 97.4; O2SAT 97
[2024-05-14 09:25] VITALS: O2SAT 97
[2024-05-14] MEDS: ACETAMINOPHEN 325 MG TAB PO ONE (10:04)
[2024-05-14] MEDS ORDERED: DICL100G32 TP (10:11)
[2024-05-14 10:24] VITALS: BP 148/84; PULSE 72; RESP 16; TEMP 97.4; O2SAT 97
== END 2024-05-14 10:24 | disposition home or self-care (01) ==
LOC: MED 08:15
DX: S63.91XA Sprain of unspecified part of right wrist and hand, initial encounter (principal); S50.11XA Contusion of right forearm, initial encounter; I10 Essential (primary) hypertension; Z79.899 Other long term (current) drug therapy; W01.0XXA Fall on same level from slipping, tripping and stumbling without subsequent striking against object, initial encounter; Y92.89 Other specified places as the place of occurrence of the external cause; Y93.89 Activity, other specified; Y99.8 Other external cause status
CPT/HCPCS: 73090; 73130; 99284